=== PATIENT | female | born 1990 | race Caucasian/White ===

== ENCOUNTER 2016-10-31 09:18 | Emergency (ER) | payer OTHER ==
[2016-10-31 09:23] VITALS: BP 129/70; PULSE 122; TEMP 101.7; BMI 27.6
[2016-10-31] MEDS ORDERED: ACETAMINOPHEN 325 MG TABLET (FP) PO ONE (09:25)
[2016-10-31] MEDS ORDERED: ALBUTEROL SO4 2.5/IPRATROPIUM 0.5 INH SOL 3 ML VIAL.NEB. NEB ONE ×2 (09:57→10:04)
--- NOTE | 2016-10-31 10:01 | PDOC ---
History of Present Illness - General Chief Complaint: Cold Symptoms Stated Complaint: Cold Symptoms/PAIN Time Seen by Provider: 10/31/16 09:35 History Source: Patient Exam Limitations: No Limitations - History of Present Illness Initial Comments: 10/31/16 09:55 patient came for evaluation of cough, fevers, ear and throat pain, general body aches and malaise. Thinks may have influenza 10/31/16 10:01 10/31/16 11:14 10/31/16 11:44 10/31/16 15:05 Timing/Duration: reports: changing over time, getting worse Severity: reports: mild, moderate Associated Symptoms: reports: cough, facial pain, fever/chills, nasal congestion , sore throat, wheezing Past History - Travel Traveled outside of the country in the last 30 days: No Close contact w/someone who was outside of country & ill: No - Past Medical History Allergies/Adverse Reactions: Allergies Allergy/AdvReac Type Severity Reaction Status Date / Time No Known Drug Allergies Allergy Verified 10/31/16 09:23 Home Medications: Ambulatory Orders Albuterol 0.083% Nebulizer Enma [Ventolin 0.083% Nebulizer Soln -] 1 neb NEB Q4H PRN #30 vial 10/31/16 Azithromycin [Zithromax -] 250 mg PO UTDICT #6 tab 10/31/16 Asthma: No Cancer: No Cardiac Disorders: No Diabetes: No HTN: No Seizures: No Thyroid Disease: No - Psycho/Social/Smoking Cessation Hx Anxiety: No Suicidal Ideation: No Smoking Status: No Smoking History: Never smoked Number of Cigarettes Smoked Daily: 0 Hx Alcohol Use: No Drug/Substance Use Hx: No Substance Use Type: None Hx Substance Use Treatment: No Review of Systems - Review of Systems Able to Perform ROS?: Yes Is the patient limited Azeri proficient: Yes Constitutional: Yes: Symptoms Reported, See HPI, Fever, Loss of Appetite, Malaise HEENTM: Yes: Symptoms Reported, See HPI, Nose Congestion, Throat Pain, Throat Swelling Respiratory: Yes: Symptoms reported, See HPI, Cough, Wheezing ABD/GI: No: Symptoms Reported Integumentary: Yes: Symptoms Reported, See HPI Neurological: Yes: Symptoms reported, See HPI, Headache All Other Systems: Reviewed and Negative *Physical Exam - Vital Signs Last Vital Signs Temp Pulse Resp BP Pulse Ox 101.7 F H 122 H 20 129/70 97 10/31/16 09:20 10/31/16 09:20 10/31/16 09:20 10/31/16 09:20 10/31/16 09:20 - Physical Exam General Appearance: Yes: Nourished, Appropriately Dressed, Apparent Distress, Mild Distress, Moderate Distress HEENT: positive: GERI, Pharynx Normal, Pharyngeal Erythema, Nasal Congestion, Rhinorrhea. negative: Normal ENT Inspection (mild erythema), TMs Normal ( congested) Neck: positive: Tender, Supple, Lymphadenopathy (R), Lymphadenopathy (L) Respiratory/Chest: positive: Lungs Clear, Wheezing. negative: Normal Breath Sounds (coarse insp and exp breath sounds ), Respiratory Distress Cardiovascular: positive: Regular Rate Gastrointestinal/Abdominal: positive: Normal Bowel Sounds, Soft. negative: Tender Musculoskeletal: positive: Normal Inspection Extremity: positive: Normal Capillary Refill, Normal Inspection, Normal Range of Motion Integumentary: positive: Normal Color, Warm, Pale Neurologic: positive: systems navigator II-XII NML intact, Fully Oriented, Alert, Normal Mood/ Affect, Normal Response, Motor Strength 5/5 ED Treatment Course - Medications Given in the ED: ED Medications Discontinued Medications Generic Name Dose Route Start Last Admin Trade Name Freq PRN Reason Stop Dose Admin Acetaminophen 650 mg 10/31/16 09:25 10/31/16 09:25 Tylenol - PO 10/31/16 09:26 650 mg NOW ONE Administration Progress Note - Progress Note Progress Note: Upper respiratory infection, influenza testing negative. Treat for bronchitis *DC/Admit/Observation/Transfer Diagnosis at time of Disposition: Bronchitis - Discharge Dispostion Disposition: HOME Condition at time of disposition: Stable Admit: No - Prescriptions Prescriptions: Albuterol 0.083% Nebulizer Enma [Ventolin 0.083% Nebulizer Soln -] 1 neb NEB Q4H PRN #30 vial PRN Reason: Cough Azithromycin [Zithromax -] 250 mg PO UTDICT #6 tab - Referrals Referrals: Jose Culver [Primary Care Provider] - - Patient Instructions Printed Discharge Instructions: DI for Acute Bronchitis Additional Instructions: Rest, drink lots of fluids: Teas, water, soups, Pedialyte Saltwater gargles Steamy showers/seem to face break up mucus Avoid contact with others until fevers and cough resolved Lots of handwashing and good hygiene Continue rigc-enx-chezpil medications for symptomatic relief Tylenol or Motrin for fever and pain Zithromax as directed continue albuterol nebulizers every 6 hours for next 2 days then as needed Followup with private physician in one to 2 days as needed Return to emergency department for worsened symptoms, fevers, dehydration - Post Discharge Activity Work/School Note: Back to Work
== END 2016-10-31 11:45 | disposition home or self-care (01) ==
LOC: JERFT 09:18
PROC: 3E0F7GC Introduction of Other Therapeutic Substance into Respiratory Tract, Via Natural or Artificial Opening (ICD-10-PCS; principal; 2016-10-31)
DX: J40 Bronchitis, not specified as acute or chronic (principal)
CPT/HCPCS: 84703; 87804; 94640; 99281-25

== ENCOUNTER 2017-06-10 01:11 | Emergency (ER) | payer OTHER ==
[2017-06-10] MEDS ORDERED: SODIUM CHLORIDE 1,000 ML IV STA (01:28)
[2017-06-10 01:30] VITALS: BMI 24.1
--- NOTE | 2017-06-10 01:35 | PDOC ---
History of Present Illness - General Stated Complaint: INTOX Time Seen by Provider: 06/10/17 01:19 - History of Present Illness Initial Comments: Dena Godoy is a 26 year old female with no significant past medical history who presents to the emergency department by ambulance with acute intoxication. Per family there was a family barbeque this evening with copious amounts of alcohol consumed. They do not believe she used any drugs this evening. Past History - Past Medical History Allergies/Adverse Reactions: Allergies Allergy/AdvReac Type Severity Reaction Status Date / Time No Known Drug Allergies Allergy Verified 06/10/17 04:10 Home Medications: Ambulatory Orders NK [No Known Home Medication] 06/10/17 Asthma: No Cancer: No Cardiac Disorders: No Diabetes: No HTN: No Seizures: No Thyroid Disease: No - Psycho/Social/Smoking Cessation Hx Anxiety: No Suicidal Ideation: No Smoking Status: No Smoking History: Never smoked Number of Cigarettes Smoked Daily: 0 Hx Alcohol Use: No Drug/Substance Use Hx: No Substance Use Type: None Hx Substance Use Treatment: No Review of Systems - Review of Systems Comments:: Unable to perform as patient unconscious *Physical Exam - Physical Exam Comments: 06/10/17 01:35 GENERAL: +Somnolent. HEAD: No signs of trauma, normocephalic, atraumatic EYES: PERRLA, EOMI, sclera anicteric, conjunctiva clear ENT: Auricles normal inspection, hearing grossly normal, nares patent, oropharynx clear without exudates. Moist mucosa NECK: Normal ROM, supple, no lymphadenopathy, JVD, or masses LUNGS: No distress, speaks full sentences, clear to auscultation bilaterally HEART: Regular rate and rhythm, normal S1 and S2, no murmurs, rubs or gallops, peripheral pulses normal and equal bilaterally. ABDOMEN: Soft, nontender, normoactive bowel sounds. No guarding, no rebound. No masses EXTREMITIES: Normal inspection, Normal range of motion, no edema. No clubbing or cyanosis. NEUROLOGICAL: Cranial nerves II through XII grossly intact. No focal sensorimotor deficits SKIN: Warm, Dry, normal turgor, no rashes or lesions noted. ED Treatment Course - LABORATORY CBC & Chemistry Diagram: 06/10/17 01:53 06/10/17 01:53 Medical Decision Making - Medical Decision Making 06/10/17 03:27 Patient presented acutely intoxicated. Utox also positive for THC. Labs unconcerning and patient now resting comfortably ([id number]). Will D/C patient to home. Laboratory Results - last 24 hr 06/10/17 06/10/17 06/10/17 01:53 01:53 01:53 WBC 10.6 H RBC 4.49 Hgb 12.8 D Hct 38.5 D MCV 85.7 MCH 28.4 D MCHC 33.2 RDW 13.7 Plt Count 275 D MPV 8.6 Neutrophils % 76.7 D Lymphocytes % 14.5 D Monocytes % 7.0 Eosinophils % 1.1 Basophils % 0.7 Sodium 142 Potassium 3.8 Chloride 109 H Carbon Dioxide 22 Anion Gap 11 BUN 17 D Creatinine 0.9 D Creat Clearance w eGFR > 60 Random Glucose 116 H Calcium 8.4 L Total Bilirubin 0.2 AST 22 ALT 24 Alkaline Phosphatase 71 Total Protein 7.8 Albumin 4.1 Beta HCG, Quant < 1.0 Salicylates Opiates Screen Methadone Screen Acetaminophen Barbiturate Screen Phencyclidine Screen Ur Amphetamines Screen MDMA (Ecstasy) Screen Benzodiazepines Screen Cocaine Screen U Marijuana (THC) Screen Alcohol, Quantitative 93.3 H* 06/10/17 06/10/17 01:53 02:45 WBC RBC Hgb Hct MCV MCH MCHC RDW Plt Count MPV Neutrophils % Lymphocytes % Monocytes % Eosinophils % Basophils % Sodium Potassium Chloride Carbon Dioxide Anion Gap BUN Creatinine Creat Clearance w eGFR Random Glucose Calcium Total Bilirubin AST ALT Alkaline Phosphatase Total Protein Albumin Beta HCG, Quant Salicylates < 4.0 Opiates Screen Negative Methadone Screen Negative Acetaminophen < 10 L Barbiturate Screen Negative Phencyclidine Screen Negative Ur Amphetamines Screen Negative MDMA (Ecstasy) Screen Negative Benzodiazepines Screen Negative Cocaine Screen Negative U Marijuana (THC) Screen Positive Alcohol, Quantitative *DC/Admit/Observation/Transfer Diagnosis at time of Disposition: Marijuana intoxication Qualifiers: Complication of substance-induced condition: uncomplicated Qualified Code(s): F12.920 - Cannabis use, unspecified with intoxication, uncomplicated - Discharge Dispostion Disposition: HOME - Patient Instructions Printed Discharge Instructions: DI for Alcohol Abuse
[2017-06-10 02:05] LABS: BASOPHIL 0.7 % (0-2.0); EOSINOPHIL 1.1 % (0-4.5); MCH 28.4 pg (25.7-33.7); MCHC 33.2 g/dl (32.0-36.0); MEAN CELL VOLUME 85.7 fl (80-96); MEAN PLT VOLUME 8.6 fl (7.5-11.1); NEUTROPHILS 76.7 % (42.8-82.8); PLATELET COUNT 275 K/MM3 (134-434); RDW 13.7 % (11.6-15.6); WHITE BLOOD COUNT 10.6 K/mm3 (4.0-10.0)
[2017-06-10 02:29] LABS: ALBUMIN 4.1 g/dl (3.4-5.0); ANION GAP 11 (8-16); BILIRUBIN,TOTAL 0.2 mg/dL (0.2-1.0); CALCIUM 8.4 mg/dL (8.5-10.1); CO2 22 mmol/L (21-32); CREATININE 0.9 mg/dL (0.55-1.02); GLUCOSE,RANDOM 116 mg/dL (74-106); SGOT/AST 22 U/L (15-37); SGPT/ALT 24 U/L (12-78); TOT PROT 7.8 g/dl (6.4-8.2)
[2017-06-10 02:31] LABS: ALK PHOS 71 U/L (45-117)
[2017-06-10 02:45] LABS: SALICYLATE < 4.0 mg/dl (0.0-30.0)
--- NOTE | 2017-06-10 03:12 | PDOC ---
Attending Attestation - Resident Resident Name: Yemi Alegre - HPI HPI: 06/10/17 03:11 Pt comes with intox; at a family BBQ "had too much to drink" - Physicial Exam PE: 06/10/17 03:11 Agree with resident exam - Medical Decision Making 06/10/17 03:11 Labs pending. alcohol level WNL; UTOX pending 06/10/17 06:37 Pt only has cannabis in her system. She will be sent home with her mom and her sister.
[2017-06-10 03:18] LABS: URINE MARIJUANA THC POSITIVE ng/ml (CUTOFF=50)
[2017-06-10 04:41] VITALS: BP 106/65; PULSE 90
--- NOTE | 2017-06-10 22:13 | EKG ---
Test Reason : Blood Pressure : / mmHG Vent. Rate : 116 BPM Atrial Rate : 116 BPM P-R Int : 160 ms QRS Dur : 090 ms QT Int : 338 ms P-R-T Axes : 050 055 031 degrees QTc Int : 469 ms SINUS TACHYCARDIA POSSIBLE LEFT ATRIAL ENLARGEMENT BORDERLINE ECG NO PREVIOUS ECGS AVAILABLE Confirmed by AKIN FARRELL MD ([id number]) on 06/10/2017 10:12:44 PM Referred By: Confirmed By:AKIN FARRELL MD
== END 2017-06-10 04:41 | disposition home or self-care (01) ==
LOC: JER 01:11
PROC: 3E0337Z Introduction of Electrolytic and Water Balance Substance into Peripheral Vein, Percutaneous Approach (ICD-10-PCS; principal; 2017-06-10)
DX: F10.220 Alcohol dependence with intoxication, uncomplicated (principal); F12.920 Cannabis use, unspecified with intoxication, uncomplicated; Y90.4 Blood alcohol level of 80-99 mg/100 ml
CPT/HCPCS: 36415; 80053; 80307; 84702; 85025; 93005; 93010; 96360; 99282-25

== ENCOUNTER → 2023-04-04 | Day surgery (SDC) | payer OTHER | END | disposition home or self-care (01) | LOC: JRADIR 09:09 | PROVIDERS: ATTEND Internal Medicine Endocrinology, Diabetes & Metabolism | PROC: 0GBH3ZX Excision of Right Thyroid Gland Lobe, Percutaneous Approach, Diagnostic (ICD-10-PCS; principal; 2023-04-04) | DX: E04.1 Nontoxic single thyroid nodule (principal) | CPT/HCPCS: 10005; 76942; 88173; 88305-TC ==